=== PATIENT | female | born 2005 | race Caucasian/White ===

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

== ENCOUNTER 2023-03-29 10:13 | Inpatient (IN) | payer OTHER ==
[2023-03-29 11:07] LABS: EPI CELLS 24 /uL (0-25.1); HYALINE CASTS 1 /uL (0-3.1); URINE APPEARANCE TURBID; URINE BACTERIA >9,000 /uL (0-1359); URINE BILIRUBIN NEGATIVE (NEGATIVE); URINE COLOR YELLOW; URINE GLUCOSE (UA) NEGATIVE (NEGATIVE); URINE KETONE 2+ (NEGATIVE); URINE LEUK ESTERASE 3+ (NEGATIVE); URINE NITRITE POSITIVE (NEGATIVE); URINE PROTEIN 2+ (NEGATIVE); URINE WBC 10293 /uL (0-25.8)
[2023-03-29 11:08] LABS: HCG,QUALITATIVE URINE Negative
[2023-03-29 11:21] LABS: THROAT:GRP A STREP NOT DETECTED (NOTDETECTED)
[2023-03-29] MEDS ORDERED: KETOROLAC TROMETHAMINE 15 MG/ML VIAL IVPUSH ONE ×2 (11:54→11:56)
[2023-03-29] MEDS ORDERED: SODIUM CHLORIDE 1,000 ML IV STA ×2 (11:55→15:35)
[2023-03-29] MEDS ORDERED: KETOROLAC TROMETHAMINE 15 MG/ML VIAL ONE (11:57)
[2023-03-29 12:01] LABS: URINE RBC 205.7 /uL (0-23.9); YEAST NEGATIVE (NEGATIVE)
[2023-03-29 12:15] LABS: BASO % 0.2 % (0-2.0); HEMATOCRIT 38.6 % (32.4-45.2); HEMOGLOBIN 13.2 GM/dL (10.7-15.3); LYMPH % 5.5 % (8-40); MCH 29.1 pg (25.7-33.7); MCHC 34.2 g/dl (32.0-36.0); MEAN CELL VOLUME 85.3 fl (80-96); MEAN PLT VOLUME 8.2 fl (7.5-11.1); NEUT % 86.3 % (42.8-82.8); PLATELET COUNT 371 10^3/uL (134-434); RBC 4.53 M/mm3 (3.60-5.2); RDW 13.8 % (11.6-15.6); WHITE BLOOD COUNT 16.9 K/mm3 (4.0-10.0)
[2023-03-29 12:30] LABS: POTASSIUM 4.2 mmol/L (3.5-5.1)
[2023-03-29 12:33] LABS: ALBUMIN 4.1 g/dl (3.4-5.0); CALCIUM 9.9 mg/dL (8.5-10.1)
[2023-03-29 12:34] LABS: BLOOD UREA NITROGEN 7.9 mg/dL (7-18)
[2023-03-29 12:37] LABS: CREATININE 0.6 mg/dL (0.55-1.3)
[2023-03-29 12:39] LABS: BILIRUBIN,TOTAL 1.3 mg/dL (0.2-1)
[2023-03-29] MEDS ORDERED: PIPERACILLIN/TAZOB 3.375 GM 3.375 GM in DEXTROSE 5%-WATER - 50 ML IVPB ONE (15:34)
[2023-03-29] MEDS ORDERED: ACETAMINOPHEN 1000 MG/100 ML BAG IVPB ONE (15:41)
[2023-03-29] MEDS ORDERED: PIPERACILLIN/TAZOB 3.375 GM 3.375 GM/50 ML BAG IVPB ONE (15:41)
[2023-03-29] MEDS ORDERED: ACETAMINOPHEN INJECTION 100 ML IVPB ONE (16:09)
[2023-03-29] MEDS ORDERED: TRIMETHOBENZAMIDE HCL 200MG/2ML INJ IM PRN (17:17)
[2023-03-29] MEDS ORDERED: PROCHLORPERAZINE INJECTION 10 MG/2 ML VIAL IM PRN (18:04)
[2023-03-29] MEDS ORDERED: PANTOPRAZOLE SODIUM 40 MG VIAL IVPUSH ONE (18:21)
[2023-03-29] MEDS ORDERED: IBUPROFEN 800 MG/8 ML IJ IVPB PRN (18:21)
[2023-03-29] MEDS ORDERED: PANTOPRAZOLE SODIUM 40 MG/100 ML BAG IVPB ONE (18:26)
[2023-03-29] MEDS ORDERED: IBUPROFEN 800 MG/8 ML IJ IVPB ONE (18:26)
[2023-03-29] MEDS ORDERED: PANTOPRAZOLE SODIUM 40 MG VIAL ONE (18:35)
[2023-03-29] MEDS: SODIUM CHLORIDE 1,000 ML IV SCH (18:40)
[2023-03-29 20:21] VITALS: BMI 32.0
[2023-03-29 20:49] LABS: HIV INTERPRETATION NEGATIVE (NEGATIVE)
[2023-03-29 21:14] LABS: INR 1.38 (0.83-1.09)
[2023-03-29 21:16] LABS: ACTIVATED PTT 29.1 SECONDS (25.2-36.5)
[2023-03-30] MEDS ORDERED: ACETAMINOPHEN 1000 MG/100 ML BAG IVPB ONE (00:02)
[2023-03-30 08:28] LABS: BASO % 0.3 % (0-2.0); EOS % 0.9 % (0-4.5); HEMATOCRIT 34.2 % (32.4-45.2); HEMOGLOBIN 11.9 GM/dL (10.7-15.3); LYMPH % 9.9 % (8-40); MCH 29.6 pg (25.7-33.7); MCHC 34.7 g/dl (32.0-36.0); MEAN CELL VOLUME 85.1 fl (80-96); MONO % 6.7 % (3.8-10.2); NEUT % 82.2 % (42.8-82.8); PLATELET COUNT 315 10^3/uL (134-434); RBC 4.01 M/mm3 (3.60-5.2); RDW 13.5 % (11.6-15.6); WHITE BLOOD COUNT 13.9 K/mm3 (4.0-10.0)
[2023-03-30 09:15] LABS: POTASSIUM 3.9 mmol/L (3.5-5.1)
[2023-03-30 09:20] LABS: CALCIUM 8.5 mg/dL (8.5-10.1)
[2023-03-30 09:21] LABS: ALBUMIN 3.4 g/dl (3.4-5.0); BLOOD UREA NITROGEN 4.3 mg/dL (7-18)
[2023-03-30 09:23] LABS: CREATININE 0.5 mg/dL (0.55-1.3)
[2023-03-30 09:24] LABS: TOT PROT 6.9 g/dl (6.4-8.2)
[2023-03-30 09:25] LABS: BILIRUBIN,TOTAL 1.3 mg/dL (0.2-1)
[2023-03-30] MEDS ORDERED: CEFTRIAXONE 1 GM in DEXTROSE 5%-WATER - 50 ML IVPB SCH (10:00)
[2023-03-30] MEDS: ACETAMINOPHEN 1000 MG/100 ML BAG IVPB PRN ×2 (10:44→16:50)
[2023-03-30] MEDS ORDERED: SODIUM CHLORIDE 1,000 ML IV STA (17:49)
[2023-03-30] MEDS: SODIUM CHLORIDE 1,000 ML IV SCH (20:00)
[2023-03-31] MEDS: KETOROLAC TROMETHAMINE 15 MG/ML VIAL IVPUSH PRN ×2 (00:39→18:34)
[2023-03-31] MEDS: CEFTRIAXONE 2 GM in DEXTROSE 5%-WATER 100 ML IVPB SCH (08:10)
[2023-03-31] MEDS: PANTOPRAZOLE 40 MG TABLET PO SCH (09:34)
[2023-04-01] MEDS: PANTOPRAZOLE 40 MG TABLET PO SCH (09:01)
[2023-04-01] MEDS: CEFTRIAXONE 2 GM in DEXTROSE 5%-WATER 100 ML IVPB SCH (09:01)
[2023-04-01 09:42] LABS: BASO % 0.6 % (0-2.0); EOS % 0.8 % (0-4.5); HEMATOCRIT 31.4 % (32.4-45.2); HEMOGLOBIN 11.4 GM/dL (10.7-15.3); LYMPH % 25.5 % (8-40); MCH 30.3 pg (25.7-33.7); MCHC 36.5 g/dl (32.0-36.0); MEAN CELL VOLUME 82.9 fl (80-96); MEAN PLT VOLUME 7.8 fl (7.5-11.1); MONO % 10.8 % (3.8-10.2); NEUT % 62.3 % (42.8-82.8); PLATELET COUNT 337 10^3/uL (134-434); RBC 3.78 M/mm3 (3.60-5.2); RDW 13.3 % (11.6-15.6); WHITE BLOOD COUNT 8.6 K/mm3 (4.0-10.0)
[2023-04-01 10:04] LABS: POTASSIUM 3.1 mmol/L (3.5-5.1)
[2023-04-01 10:09] LABS: BLOOD UREA NITROGEN 5.8 mg/dL (7-18); CALCIUM 8.6 mg/dL (8.5-10.1)
[2023-04-01 10:13] LABS: CREATININE 0.4 mg/dL (0.55-1.3)
[2023-04-01 10:14] LABS: BILIRUBIN,TOTAL 0.6 mg/dL (0.2-1); TOT PROT 6.8 g/dl (6.4-8.2)
[2023-04-01] MEDS: POTASSIUM CHLORIDE TABS 20 MEQ TABLET.ER (FP) PO SCH ×2 (11:21→21:03)
[2023-04-01 18:23] VITALS: RESP 18
[2023-04-02 06:33] VITALS: PULSE 67
[2023-04-02] MEDS: PANTOPRAZOLE 40 MG TABLET PO SCH (09:33)
[2023-04-02] MEDS: CEFTRIAXONE 2 GM in DEXTROSE 5%-WATER 100 ML IVPB SCH (09:33)
[2023-04-02 09:53] LABS: BASO % 0.4 % (0-2.0); EOS % 2.1 % (0-4.5); HEMATOCRIT 32.4 % (32.4-45.2); HEMOGLOBIN 11.4 GM/dL (10.7-15.3); LYMPH % 34.1 % (8-40); MCH 29.4 pg (25.7-33.7); MCHC 35.2 g/dl (32.0-36.0); MEAN CELL VOLUME 83.6 fl (80-96); MEAN PLT VOLUME 7.9 fl (7.5-11.1); MONO % 12.6 % (3.8-10.2); NEUT % 50.8 % (42.8-82.8); PLATELET COUNT 374 10^3/uL (134-434); RBC 3.88 M/mm3 (3.60-5.2); RDW 13.1 % (11.6-15.6)
[2023-04-02 10:19] LABS: CALCIUM 8.7 mg/dL (8.5-10.1)
[2023-04-02 10:20] LABS: ALBUMIN 3.1 g/dl (3.4-5.0); BLOOD UREA NITROGEN 5.6 mg/dL (7-18); MAGNESIUM 2.2 mg/dL (1.8-2.4)
[2023-04-02 10:23] LABS: CREATININE 0.4 mg/dL (0.55-1.3)
[2023-04-02 10:24] LABS: BILIRUBIN,TOTAL 0.4 mg/dL (0.2-1)
[2023-04-02 10:25] LABS: TOT PROT 6.8 g/dl (6.4-8.2)
[2023-04-02 11:30] VITALS: BP 116/55; TEMP 98.6
== END 2023-04-02 13:32 | disposition home or self-care (01) | DRG 321 ==
LOC: JERFT 10:13 → JER 10:13 → JERBED 15:59 → INTOOBSV 15:59 → J5S 19:50 → OBSVTOIN 03-31 09:51
PROVIDERS: ADMIT Internal Medicine; ATTEND Nurse Practitioner Acute Care
DX: N12 Tubulo-interstitial nephritis, not specified as acute or chronic (principal); K21.9 Gastro-esophageal reflux disease without esophagitis; R94.31 Abnormal electrocardiogram [ECG] [EKG]; K80.20 Calculus of gallbladder without cholecystitis without obstruction; K83.8 Other specified diseases of biliary tract; E66.9 Obesity, unspecified; B96.20 Unspecified Escherichia coli [E. coli] as the cause of diseases classified elsewhere
CPT/HCPCS: 0241U-QW; 36415; 74181-TC; 76700-TC; 80053; 81003; 83036; 83735; 84703; 85025; 85610; 85730; 86704; 86705; 86780; 86850; 86900; 86901; 87040; 87086; 87186; 87340; 87389; 87517; 87651; 93005; 93010; 99285-25; G0378

== ENCOUNTER 2024-03-01 22:06 | Emergency (ER) | payer OTHER ==
[2024-03-01 22:18] VITALS: BP 110/56; PULSE 83; RESP 18; TEMP 98.4; BMI 33.2
[2024-03-01 23:36] LABS: BASO % 0.4 % (0-2.0); EOS % 1.1 % (0-4.5); HEMOGLOBIN 13.6 GM/dL (10.7-15.3); LYMPH % 9.4 % (8-40); MCH 30.8 pg (25.7-33.7); MCHC 35.8 g/dl (32.0-36.0); MEAN PLT VOLUME 8.3 fl (7.5-11.1); MONO % 3.7 % (3.8-10.2); NEUT % 85.4 % (42.8-82.8); PLATELET COUNT 342 10^3/uL (134-434); RBC 4.42 M/mm3 (3.60-5.2); RDW 13.6 % (11.6-15.6); WHITE BLOOD COUNT 15.6 K/mm3 (4.0-10.0)
[2024-03-01 23:43] LABS: INR 1.04 (0.83-1.09); PROTHROMBIN TIME (PATIENT) 11.9 SEC (9.7-13.0)
[2024-03-01 23:54] LABS: POTASSIUM 3.7 mmol/L (3.5-5.1)
[2024-03-01 23:56] LABS: CALCIUM 9.3 mg/dL (8.5-10.1)
[2024-03-01 23:57] LABS: ALBUMIN 4.3 g/dl (3.4-5.0); BLOOD UREA NITROGEN 11.2 mg/dL (7-18)
[2024-03-02] LABS: CREATININE 0.6 mg/dL (0.55-1.3)
[2024-03-02 00:01] LABS: TOT PROT 7.9 g/dl (6.4-8.2)
[2024-03-02 00:02] LABS: BILIRUBIN,TOTAL 0.8 mg/dL (0.2-1)
[2024-03-02] MEDS ORDERED: MAG HYDROX/AL HYDROX/SIMETH 30 ML UNIT-DOSE CUP ONE (00:10)
[2024-03-02] MEDS ORDERED: FAMOTIDINE 20 MG/50 ML IVPB 20 MG/50 ML MG IVPB ONE (00:11)
[2024-03-02] MEDS ORDERED: ONDANSETRON 4 MG/2 ML VIAL ONE (00:11)
[2024-03-02] MEDS: ONDANSETRON 4 MG/2 ML VIAL IVPUSH ONE (00:19)
[2024-03-02] MEDS: MAG HYDROX/AL HYDROX/SIMETH 30 ML UNIT-DOSE CUP PO ONE (00:19)
[2024-03-02] MEDS: FAMOTIDINE 20 MG/50 ML IVPB 20 MG/50 ML MG IVPB ONE (00:19)
[2024-03-02 02:18] LABS: EPI CELLS 10 /uL (0-25.1); HYALINE CASTS 0 /uL (0-3.1); URINE APPEARANCE CLEAR; URINE BACTERIA 131 /uL (0-1359); URINE BILIRUBIN NEGATIVE (NEGATIVE); URINE COLOR YELLOW; URINE GLUCOSE (UA) NEGATIVE (NEGATIVE); URINE KETONE NEGATIVE (NEGATIVE); URINE LEUK ESTERASE 1+ (NEGATIVE); URINE NITRITE NEGATIVE (NEGATIVE); URINE PROTEIN NEGATIVE (NEGATIVE); URINE RBC 38 /uL (0-23.9); URINE UROBILINOGEN 0.2 mg/dL (0.2-1.0); URINE WBC 60 /uL (0-25.8)
[2024-03-02] MEDS ORDERED: CEPHALEXIN MONOHYDRATE 500 MG CAPSULE (UD) ONE (02:39)
[2024-03-02] MEDS: CEPHALEXIN MONOHYDRATE 500 MG CAPSULE (UD) PO ONE (02:40)
== END 2024-03-02 02:37 | disposition home or self-care (01) ==
LOC: JER 22:06
PROC: 3E033GC Introduction of Other Therapeutic Substance into Peripheral Vein, Percutaneous Approach (ICD-10-PCS; principal; 2024-03-02)
PROC: 3E033GC Introduction of Other Therapeutic Substance into Peripheral Vein, Percutaneous Approach (ICD-10-PCS; 2024-03-02)
DX: R10.13 Epigastric pain (principal); R10.11 Right upper quadrant pain; M54.50 Low back pain, unspecified; R11.0 Nausea; Z33.1 Pregnant state, incidental
CPT/HCPCS: 36415; 76705-TC; 80053; 81003; 83690; 84702; 84703; 85025; 85610; 85730; 86850; 86900; 86901; 87086; 99284-25

== ENCOUNTER 2025-02-25 13:39 | Emergency (ER) | payer OTHER ==
[2025-02-25 14:21] VITALS: BP 129/85; PULSE 78; RESP 19; TEMP 98.5; BMI 32.2
[2025-02-25] MEDS ORDERED: predniSONE 20 MG TABLET (UD) ONE (15:11)
[2025-02-25] MEDS: predniSONE 20 MG TABLET (UD) PO ONE (15:14)
== END 2025-02-25 15:42 | disposition home or self-care (01) ==
LOC: JER 13:39
DX: G51.0 Bell's palsy (principal); R20.0 Anesthesia of skin
CPT/HCPCS: 99283-25